=== PATIENT | male | born 1950 | race Caucasian/White ===

== ENCOUNTER 2017-11-11 06:44 | Inpatient (IN) | payer MEDICARE, BC ==
[~2017-11-11 06:44] MED LIST: Bupivacaine 0.5%/EPINEPHrine 1:200,000 50 ML MDV ONE
[2017-11-11] MEDS: Sodium Chloride 0.9% 1,000 ML IV SCH ×2 (07:11→12:32)
[2017-11-11] MEDS ORDERED: Propofol 200 MG/20 ML SDV ONE (07:39)
[2017-11-11] MEDS ORDERED: fentaNYL 100 MCG/2 ML SDV ONE (07:39)
[2017-11-11] MEDS ORDERED: Midazolam 1 MG/ML 2 ML SDV ONE (07:39)
[2017-11-11] MEDS ORDERED: ceFAZolin 2 GM in Premix Bag 1 BAG IV ONE (08:30)
[2017-11-11] MEDS ORDERED: ceFAZolin 2 GM in Sodium Chloride 0.9% 100 ML IV ONE (08:30)
[2017-11-11] MEDS ORDERED: metroNIDAZOLE/Normal Saline 500 MG in Premix Bag 1 BAG IV ONE (08:45)
[2017-11-11] MEDS ORDERED: fentaNYL 250 MCG/5 ML SDV ONE (08:59)
[2017-11-11] MEDS ORDERED: Naloxone 0.4 MG/ML SDV IVPUSH PRN (09:00)
[2017-11-11] MEDS ORDERED: Lidocaine 2% 100 MG/5 ML Syringe ONE (09:05)
[2017-11-11] MEDS ORDERED: Sodium Chloride 0.9% 10 ML ONE (09:11)
[2017-11-11] MEDS ORDERED: Lactated Ringers 1,000 ML ONE (09:31)
[2017-11-11] MEDS ORDERED: ePHEDrine 50 MG/ML SDV ONE (09:43)
[2017-11-11] MEDS ORDERED: Meropenem 500 MG SDV ONE (10:27)
[2017-11-11] MEDS ORDERED: Rocuronium 50 MG/5 ML Vial ONE (10:48)
[2017-11-11] MEDS ORDERED: Ondansetron 4 MG/2 ML SDV IVPUSH PRN (11:45)
[2017-11-11] MEDS ORDERED: hydrOXYzine HCl 100 MG/2 ML SDV IM PRN (11:45)
[2017-11-11] MEDS ORDERED: Zolpidem 5 MG Tab PO PRN (11:45)
[2017-11-11] MEDS ORDERED: Promethazine 25 MG/ML SDV IM PRN (11:45)
[2017-11-11] MEDS ORDERED: Acetaminophen 325 MG Tab PO PRN (11:45)
[2017-11-11] MEDS ORDERED: diphenhydrAMINE 50 MG/ML SDV IVPUSH PRN (11:45)
[2017-11-11] MEDS ORDERED: Metoclopramide 10 MG/2 ML SDV IV PRN (11:45)
[2017-11-11] MEDS ORDERED: Benzocaine/Cetylpyridinium/Menthol Lozenge MUCMEM PRN (11:45)
[2017-11-11] MEDS ORDERED: Bisacodyl 5 MG Tab PO PRN (11:45)
[2017-11-11] MEDS ORDERED: Naloxone 0.4 MG/ML SDV IV PRN (13:04)
[2017-11-11] MEDS: fentaNYL 2,500 MCG in Sodium Chloride 0.9% 200 ML EPIDUR SCH (14:42)
--- NOTE | 2017-11-11 15:09 | OR ---
DATE OF PROCEDURE: 11/11/2017 PROCEDURES: 1. Laparoscopic creation of colostomy (26021). 2. Repair of parastomal hernia (35338). 3. Paraesophageal hernia repair with mesh application in standard Sugarbaker technique. COMPLICATIONS: None. ASSISTANTS: None. ANESTHESIA: General/epidural. PREOPERATIVE DIAGNOSIS: Parastomal hernia. POSTOPERATIVE DIAGNOSIS: Parastomal hernia. FINDINGS: 1. Incarcerated omentum of parastomal hernia. 2. No other gross abnormalities. PROCEDURE IN DETAIL: The patient was placed in supine position. In the right abdomen, a 12- mm port incision was made. This was addressed, and a Veress needle was used to enter the abdomen without abnormality. A drop test was performed without abnormality. The abdomen was subsequently insufflated. This was followed by an Optiview trocar. No evidence of enterotomy or injury was noted. Two additional 10 mm ports were entered in the right upper and right lower quadrants under direct visualization. Lysis of adhesions was then commenced. These were moderately dense adhesions. The hernia defect itself was noted to be 6 cm. Omentum was then removed from this. The colon was then mobilized off the left colon wall using sharp and blunt dissection. At no time was energy used in any proximity to bowel during this entire procedure. Once this was fairly mobilized, attention was turned to the outside, as the patient had an ostomy that was retracted and unable to be cannulized with a colonoscope that was ample for size description. This was then sutured shut, excised, and then fully mobilized. This will be transected with a blue load stapler. Mobilization was initially commenced intra-abdominally and then completed extracorporeally to complete further mobilization. 2 cm of this ostomy was then brought up and will be sutured into a new ostomy. These were interrupted Vicryl sutures. Unfortunately, during this aspect, the patient had anesthetic issues, and a large amount of colon was brought through the abdominal wall into the dirty aspect of the field, due to the patient not being anesthetized at that moment. This resultant increased abdominal pressure put the colon potentially in direct contact with bacteria from the ostomy site. Therefore, at this time, absorbable mesh would be used to repair this. This would be performed using a Sugarbaker technique. This mesh was then tacked into place creating a "valve-type technique" with multiple tacks. Please see images for further description. Once this was completed, of note, abdomen was desufflated and subsequently re-insufflated. Once this was performed, a Seprafilm was placed in the midline abdomen. The ostomy had already been created and isolated. The abdomen was thoroughly irrigated with meropenem-containing solution, along with the ostomy area. The wounds were closed with peter and 3-0 Vicryl. The patient tolerated the procedure well. Massimo Thompson MD /[id number]
[2017-11-11] MEDS: Insulin Aspart 100 Units/ML 3 ML Pen SUBCUT SCH (17:02)
[2017-11-11] MEDS ORDERED: Insulin Detemir 100 Units/ML 3 ML Pen SUBCUT SCH (21:00)
[2017-11-12] MEDS: Sodium Chloride 0.9% 1,000 ML IV SCH ×2 (01:45→15:13)
[2017-11-12] MEDS: Pantoprazole 40 MG Tab.CR PO SCH (07:14)
[2017-11-12] MEDS: Insulin Aspart 100 Units/ML 3 ML Pen SUBCUT SCH ×3 (08:18→17:11)
[2017-11-12] MEDS: Hydrochlorothiazide 25 MG Tab PO SCH (08:20)
[2017-11-12] MEDS ORDERED: VALSARTAN PO SCH ×2 (09:00)
[2017-11-12] MEDS ORDERED: [UNRECOGNIZED DRUG - OTHER] PO SCH ×2 (09:00)
[2017-11-12] MEDS ORDERED: Non-Formulary Medication 1 Each (Omeprazole [Prilosec] 40 MG) PO SCH ×2 (09:00)
[2017-11-12] MEDS ORDERED: HYDROCHLOROTHIAZIDE PO SCH ×2 (09:00)
[2017-11-12] MEDS ORDERED: Ertapenem 1 GM Vial IVPUSH SCH (09:00)
[2017-11-12] MEDS: Liraglutide (rDNA Origin) 0.6 MG/0.1 ML 3 ML Pen SUBCUT SCH (09:27)
--- NOTE | 2017-11-12 09:55 | PN ---
DATE OF SERVICE: 11/12/2017 SUBJECTIVE: The patient is doing well. Pain is 0/10. No nausea, vomiting, shortness of breath, or chest pain. OBJECTIVE: VITAL SIGNS: Stable. CARDIOVASCULAR: Regular rate. RESPIRATORY: Lungs clear to auscultation bilaterally. ABDOMEN: Ostomy intact. No evidence of ischemia. Output is minimum. LABORATORY RESULTS: Show a normal hemoglobin. ASSESSMENT: Status post ostomy revision. PLAN: The patient will be starting on Victoza today. Continue advancing diet slowly. We will also add Entereg today. In addition, we will add a broad-spectrum antibiotic as he did have some mild spillage, and we will just cover him for a few days prophylactically. Massimo Thompson MD /[id number]
[2017-11-12] MEDS: fentaNYL 2,500 MCG in Sodium Chloride 0.9% 200 ML EPIDUR SCH (12:23)
[2017-11-12] MEDS: metFORMIN 500 MG Tab PO SCH (17:11)
[2017-11-12] MEDS: Insulin Detemir 100 Units/ML 3 ML Pen SUBCUT SCH (21:08)
[2017-11-13] MEDS: Sodium Chloride 0.9% 1,000 ML IV SCH (05:35)
[2017-11-13] MEDS: Pantoprazole 40 MG Tab.CR PO SCH (07:42)
[2017-11-13] MEDS: metFORMIN 500 MG Tab PO SCH ×2 (08:36→17:23)
[2017-11-13] MEDS: Hydrochlorothiazide 25 MG Tab PO SCH (08:39)
[2017-11-13] MEDS: Insulin Aspart 100 Units/ML 3 ML Pen SUBCUT SCH ×3 (08:40→17:23)
[2017-11-13] MEDS: Liraglutide (rDNA Origin) 0.6 MG/0.1 ML 3 ML Pen SUBCUT SCH (08:43)
[2017-11-13] MEDS ORDERED: Acetaminophen/HYDROcodone 325-5 MG Tab PO PRN (10:37)
--- NOTE | 2017-11-13 11:11 | PN ---
DATE OF SERVICE: 11/13/2017 SUBJECTIVE: The patient is doing very well today. Pain is zero. No nausea, vomiting, shortness of breath, or chest pain. OBJECTIVE: VITAL SIGNS: Temperature 99.8, blood pressure 133/64, pulse 101, respirations 18, 96% on room air. CARDIOVASCULAR: Regular rate. RESPIRATORY: Lungs clear to consultation bilaterally. ABDOMEN: Bowel sounds are positive. ASSESSMENT: Status post ostomy revision. PLAN: We will stop the epidural today. We will work on diet and activity. Consider to discharge tomorrow morning.Low grade fever. Will remove foely/epidual, add Augmentin and check cbc in am. Massimo Thompson MD /[id number]
[2017-11-13] MEDS: Amoxicillin/Clavulanate K 875-125 MG Tab PO SCH ×2 (11:27→20:57)
[2017-11-13] MEDS: Insulin Detemir 100 Units/ML 3 ML Pen SUBCUT SCH (20:58)
[2017-11-14 07:53] VITALS: BP 147/92
[2017-11-14] MEDS: metFORMIN 500 MG Tab PO SCH (08:16)
[2017-11-14] MEDS: Pantoprazole 40 MG Tab.CR PO SCH (08:16)
[2017-11-14] MEDS: Insulin Aspart 100 Units/ML 3 ML Pen SUBCUT SCH (08:17)
[2017-11-14] MEDS: Amoxicillin/Clavulanate K 875-125 MG Tab PO SCH (08:23)
[2017-11-14] MEDS: Hydrochlorothiazide 25 MG Tab PO SCH (08:24)
[2017-11-14] MEDS: Liraglutide (rDNA Origin) 0.6 MG/0.1 ML 3 ML Pen SUBCUT SCH (08:25)
--- NOTE | 2017-11-15 07:14 | PN ---
DATE OF SERVICE: 11/12/2017 SUBJECTIVE: The patient is doing well. He is postop day #1 for Sugarbaker technique for repair of a paraesophageal hernia. His pain is well controlled. He has no nausea, vomiting, shortness of breath, or chest pain. OBJECTIVE: VITAL SIGNS: Stable. CARDIOVASCULAR: Regular rhythm and rate. RESPIRATORY: Lungs clear to auscultation bilaterally. GI: Ostomy does not show any evidence of ischemia, has some initial output. LABORATORY RESULTS: Show a normal hemoglobin and a basic metabolic panel that is essentially normal, except for elevated glucose, which is consistent with his diabetes. ASSESSMENT: Status post repair of paraesophageal hernia. PLAN: We will continue his epidural, continue his regular diet, and await increased GI function. Massimo Thompson MD /[id number]
--- NOTE | 2017-11-15 07:59 | DISCH ---
DISCHARGE DIAGNOSIS: Status post ostomy revision. SUMMARY OF HOSPITAL COURSE: Pleasant 67-year-old male who had an ostomy completed due to rectal carcinoma several years ago. This continued to do well, but unfortunately developed a peristomal hernia. On 11/11/2017, the patient underwent a revision of his colostomy with repair of parastomal hernia repair. On postoperative day 1, the patient was doing well. He had an epidural for pain. His pain is described as a 0/10. He continued to advance and remained on his diet throughout his hospital course. Postoperative day, his ostomy output increased significantly and on postoperative day 3, he was on p.o. pain medications. No nausea, vomiting, shortness of breath, and his ostomy is functioning well. FOLLOWUP: Followup surgery in 7 to 14 days. ACTIVITY: No lifting greater 30 pounds x30 days. DISCHARGE MEDICATIONS: Please see MAR, but include [place] for pain.
== END 2017-11-14 10:39 | disposition home or self-care (01) | DRG 327 ==
LOC: JP.SDSSCHI 06:44 → JP.SDS 06:44 → EDSTATUS 09:30 → JP.2SS 11:45
PROVIDERS: ADMIT Surgery; ATTEND Surgery
PROC: 0WQF4ZZ Repair Abdominal Wall, Percutaneous Endoscopic Approach (ICD-10-PCS; principal; 2017-11-11)
PROC: 0BUT4JZ Supplement Diaphragm with Synthetic Substitute, Percutaneous Endoscopic Approach (ICD-10-PCS; 2017-11-11)
DX: K43.3 Parastomal hernia with obstruction, without gangrene (principal); K94.09 Other complications of colostomy; K44.9 Diaphragmatic hernia without obstruction or gangrene; T88.59XA Other complications of anesthesia, initial encounter; E11.9 Type 2 diabetes mellitus without complications; I10 Essential (primary) hypertension; Z85.048 Personal history of other malignant neoplasm of rectum, rectosigmoid junction, and anus; Z87.11 Personal history of peptic ulcer disease; Z79.82 Long term (current) use of aspirin; Z79.4 Long term (current) use of insulin
CPT/HCPCS: 36415; 80048; 82962; 85027; 94762; A9270-GY; J0690; J2185; J2250; J2704; J3010; J7030; J7050; J7120

== ENCOUNTER 2018-07-15 06:53 | Day surgery (SDC) | payer MEDICARE, BC ==
[2018-07-15] MEDS ORDERED: fentaNYL 100 MCG/2 ML SDV ONE (07:26)
[2018-07-15] MEDS ORDERED: Midazolam 1 MG/ML 2 ML SDV ONE (07:27)
[2018-07-15] MEDS ORDERED: Propofol 200 MG/20 ML SDV ONE (07:27)
[2018-07-15] MEDS ORDERED: Sodium Chloride 0.9% 1,000 ML IV SCH (07:45)
--- NOTE | 2018-07-15 09:33 | OR ---
DATE OF PROCEDURE: 07/15/2018 PROCEDURE PERFORMED: Colonoscopy. FINDINGS: Normal colonoscopy. COMPLICATIONS: None. LIBRARY PARAPROFESSIONAL: None. PREOPERATIVE DIAGNOSIS: Rectal cancer. POSTOPERATIVE DIAGNOSIS: Rectal cancer. RISKS: Risks, benefits, alternatives, and limitations including, but not limited to infection, bleeding, and perforation were explained to the patient and wished to proceed. PROCEDURE IN DETAIL: The patient was placed in supine position. The ostomy was accessed using the colonoscope without difficulty. There was no narrowing or stricturing. No old or new blood. The scope was introduced and advanced atraumatically to the ileocecal valve. A photo was taken. The scope was brought back to the remainder of the colon. No masses. No polyps. No old or new blood. The patient tolerated the procedure well. Massimo Thompson MD /[id number]
[2018-07-15 10:02] VITALS: BP 122/68
== END 2018-07-15 10:20 | disposition home or self-care (01) ==
LOC: JP.SDS 06:53
PROVIDERS: ATTEND Surgery
DX: C20 Malignant neoplasm of rectum (principal)
CPT/HCPCS: 45378; J2250; J2704; J3010; J7030

== ENCOUNTER 2020-04-15 07:15 | Day surgery (SDC) | payer BC, MEDICARE ==
[2020-04-15] MEDS ORDERED: Midazolam 1 MG/ML 2 ML SDV ONE (07:31)
[2020-04-15] MEDS ORDERED: Propofol 200 MG/20 ML SDV ONE (07:31)
[2020-04-15] MEDS ORDERED: fentaNYL 100 MCG/2 ML SDV ONE (07:31)
[2020-04-15] MEDS ORDERED: Sodium Chloride 0.9% 1,000 ML IV SCH (07:45)
[2020-04-15 09:34] VITALS: BP 157/96; PULSE 80
--- NOTE | 2020-04-15 11:54 | OR ---
DATE OF PROCEDURE: 04/15/2020 SURGEON: Massimo Thompson MD PROCEDURE: Colonoscopy. FINDINGS: Normal colonoscopy. COMPLICATIONS: None. FIREBREAK CUTTER: None. ANESTHESIA: MAC. PREOPERATIVE DIAGNOSIS: History of colorectal cancer. POSTOPERATIVE DIAGNOSIS: History of colorectal cancer. RISKS: Risks, benefits, alternatives, and limitations including, but not limited to, infection, bleeding, perforation, false positives, and false negatives were explained to the patient, who wished to proceed. PROCEDURE IN DETAIL: The patient was placed in supine position. The ostomy bag was removed. No external abnormalities were noted. The colonoscope was then introduced and advanced atraumatically to the ileocecal valve. A photo was taken of this. The scope was brought back through the ascending, transverse, and descending colon without abnormality. No old or new blood. No masses. No polyps. No colitis. No evidence of diverticulosis or diverticulitis. The patient tolerated the procedure well. Massimo Thompson MD /[id number]
== END 2020-04-15 09:37 | disposition home or self-care (01) ==
LOC: JP.SDS 07:15
PROVIDERS: ATTEND Surgery
DX: Z12.11 Encounter for screening for malignant neoplasm of colon (principal); I10 Essential (primary) hypertension; E11.9 Type 2 diabetes mellitus without complications; Z86.010 Personal history of colon polyps; Z98.890 Other specified postprocedural states
CPT/HCPCS: G0105; J2250; J2704; J3010; J7030

== ENCOUNTER 2021-05-29 15:26 | Emergency (ER) | payer MEDICARE | END 2021-05-29 15:30 | disposition left against medical advice (07) | LOC: JP.ED 15:26 | DX: Z53.21 Procedure and treatment not carried out due to patient leaving prior to being seen by health care provider (principal) ==

== ENCOUNTER 2022-02-09 06:49 | Emergency (ER) | payer MEDICARE ==
[2022-02-09 07:06] VITALS: BP 142/71
[2022-02-09 07:15] VITALS: PULSE 103
== END 2022-02-09 08:49 | disposition home or self-care (01) ==
LOC: JP.ED 06:49
DX: R04.0 Epistaxis (principal); I48.0 Paroxysmal atrial fibrillation; I11.0 Hypertensive heart disease with heart failure; I50.9 Heart failure, unspecified; J42 Unspecified chronic bronchitis; E11.9 Type 2 diabetes mellitus without complications; E66.9 Obesity, unspecified; Z68.43 Body mass index [BMI] 50.0-59.9, adult; Z79.82 Long term (current) use of aspirin; Z79.899 Other long term (current) drug therapy; Z79.4 Long term (current) use of insulin; Z79.01 Long term (current) use of anticoagulants
CPT/HCPCS: 30901; 36600; 80053; 82803; 85025; 85610; 85730; 99281; 99283

== ENCOUNTER 2022-02-11 14:10 | Emergency (ER) | payer MEDICARE ==
[2022-02-11 14:26] VITALS: BP 116/60
== END 2022-02-11 15:16 | disposition home or self-care (01) ==
LOC: JP.ED 14:10 → JP.EDOUT 14:10 → EDSTATUS 14:14 → JP.ED 15:16
DX: Z48.00 Encounter for change or removal of nonsurgical wound dressing (principal); I48.91 Unspecified atrial fibrillation; E78.00 Pure hypercholesterolemia, unspecified; I10 Essential (primary) hypertension; J44.9 Chronic obstructive pulmonary disease, unspecified; E11.9 Type 2 diabetes mellitus without complications; M10.9 Gout, unspecified; E66.9 Obesity, unspecified; Z87.891 Personal history of nicotine dependence; Z68.41 Body mass index [BMI] 40.0-44.9, adult; Z79.82 Long term (current) use of aspirin; Z79.01 Long term (current) use of anticoagulants; Z79.899 Other long term (current) drug therapy; Z79.4 Long term (current) use of insulin
CPT/HCPCS: 99281; 99282

== ENCOUNTER 2022-05-28 07:23 | Day surgery (SDC) | payer MEDICARE ==
[2022-05-28] MEDS ORDERED: fentaNYL 100 MCG/2 ML SDV ONE (07:50)
[2022-05-28] MEDS ORDERED: Propofol 200 MG/20 ML SDV ONE (07:50)
[2022-05-28] MEDS: Lactated Ringers 1,000 ML IV SCH (08:03)
[2022-05-28 10:35] VITALS: BP 114/60; PULSE 87
== END 2022-05-28 10:48 | disposition home or self-care (01) ==
LOC: JP.SDS 07:23
PROVIDERS: ATTEND Family Medicine
DX: D50.9 Iron deficiency anemia, unspecified (principal); K29.70 Gastritis, unspecified, without bleeding; I48.91 Unspecified atrial fibrillation; I50.9 Heart failure, unspecified; E11.9 Type 2 diabetes mellitus without complications; Z90.49 Acquired absence of other specified parts of digestive tract; Z79.899 Other long term (current) drug therapy; Z79.01 Long term (current) use of anticoagulants
CPT/HCPCS: 43235; 82947; J2704; J3010; J7120

== ENCOUNTER 2022-08-19 06:45 | Day surgery (SDC) | payer MEDICARE ==
[2022-08-19] MEDS ORDERED: fentaNYL 100 MCG/2 ML SDV ONE (07:12)
[2022-08-19] MEDS ORDERED: Propofol 200 MG/20 ML SDV ONE ×2 (07:12→08:14)
[2022-08-19] MEDS ORDERED: Diltiazem 120 MG Cap.CD PO ONE (07:30)
[2022-08-19] MEDS ORDERED: Lactated Ringers 1,000 ML IV SCH (08:00)
[2022-08-19 09:37] VITALS: BP 155/85; PULSE 88
== END 2022-08-19 10:05 | disposition home or self-care (01) ==
LOC: JP.SDS 06:45
PROVIDERS: ATTEND Student in an Organized Health Care Education/Training Program
DX: D50.9 Iron deficiency anemia, unspecified (principal); J44.9 Chronic obstructive pulmonary disease, unspecified; K21.9 Gastro-esophageal reflux disease without esophagitis; E11.9 Type 2 diabetes mellitus without complications
CPT/HCPCS: 45378; A9270; J2704; J3010; J7120

== ENCOUNTER 2024-02-05 10:47 | Emergency (ER) | payer MEDICARE ==
[2024-02-05] MEDS: HYDROmorphone 1 MG/ML Syringe IVPUSH ONE (12:04)
[2024-02-05] MEDS: Sodium Chloride 0.9% 10 ML Syringe FLUSH ONE (12:04)
[2024-02-05 12:05] LABS: BASOPHILS PERCENT AUTO 0.2 % (0.1-1.3); EOSINOPHILS ABSOLUTE AUTO 0.11 K/uL (0.00-0.40); EOSINOPHILS PERCENT AUTO 1.4 % (0.0-5.4); HEMATOCRIT 35.1 % (38.4-49.7); HEMOGLOBIN 12.6 g/dL (12.9-16.9); IMMATURE GRAN ABSOLUTE AUTO 0.06 K/uL (0.00-0.23); IMMATURE GRAN PERCENT AUTO 0.7 % (0.0-0.7); LYMPHOCYTES ABSOLUTE AUTO 0.92 K/uL (0.8-3.3); LYMPHOCYTES PERCENT AUTO 11.4 % (11.4-47.7); MEAN CORPUSCULAR HEMOGLOBIN 34.5 pg (31.6-35.5); MEAN CORPUSCULAR HGB CONC 35.9 g/dL (31.6-35.5); MEAN CORPUSCULAR VOLUME 96.2 fL (81.4-99.0); MONOCYTES ABSOLUTE AUTO 0.66 K/uL (0.20-0.90); MONOCYTES PERCENT AUTO 8.2 % (3.3-12.6); NEUTROPHILS ABSOLUTE AUTO 6.31 K/uL (1.0-7.6); NEUTROPHILS PERCENT AUTO 78.1 % (40.0-78.1); PLATELET COUNT,PLT 160 K/uL (130-375); RED BLOOD CELL COUNT 3.65 M/uL (4.14-5.76); WHITE BLOOD CELL COUNT,WBC 8.1 K/uL (3.2-11.0)
[2024-02-05 12:08] LABS: BASOPHILS ABSOLUTE AUTO 0.02 K/uL (0.00-0.10)
[2024-02-05 12:24] LABS: CALCIUM 9.7 mg/dL (8.5-10.1); CREATININE 0.8 mg/dL (0.8-1.3); EST CRCL DRUG DOSING (CG) 92.96 mL/min; POTASSIUM,K 3.5 mmol/L (3.6-5.2)
[2024-02-05 12:39] LABS: ANION GAP 10.5 mmol/L (5.0-14.0)
[2024-02-05] MEDS: Iopamidol 612 MG/ML 100 ML Bottle IV ONE (12:49)
[2024-02-05] MEDS: Sodium Chloride 0.9% 100 ML IV ONE (12:49)
[2024-02-05 15:08] VITALS: BP 143/65; PULSE 78
== END 2024-02-05 15:13 | disposition home or self-care (01) ==
LOC: JP.ED 10:47
DX: S22.42XA Multiple fractures of ribs, left side, initial encounter for closed fracture (principal); I48.91 Unspecified atrial fibrillation; E78.00 Pure hypercholesterolemia, unspecified; J44.9 Chronic obstructive pulmonary disease, unspecified; E11.9 Type 2 diabetes mellitus without complications; E66.9 Obesity, unspecified; Z79.899 Other long term (current) drug therapy; Z86.19 Personal history of other infectious and parasitic diseases; Z79.01 Long term (current) use of anticoagulants; Z79.4 Long term (current) use of insulin; Z68.41 Body mass index [BMI] 40.0-44.9, adult; W22.8XXA Striking against or struck by other objects, initial encounter
CPT/HCPCS: 36415; 71260; 80048; 85025; 96374; 99284; J1170; J3490; Q9967